=== PATIENT | male | born 1955 | race Two or more races ===

== ENCOUNTER 2024-04-24 20:03 | Inpatient (IN) | payer OTHER ==
[~2024-04-24] VITALS: Ht 167.6 cm; Wt 82.6 kg
[2024-04-24 21:22] LABS: BASOPHILS % (AUTO) 0.1 % (0.0-2.0); EOSINOPHILS % (AUTO) 0.5 % (0.0-6.0); HEMATOCRIT 36 % (39-51); HEMOGLOBIN 12.4 g/dL (13.5-17.5); LYMPHOCYTES # (AUTO) 1.1 K/uL (0.8-4.8); LYMPHOCYTES % (AUTO) 10.3 % (20.0-44.0); MEAN CORPUSCULAR HEMOGLOBIN 31 PG (26.0-33.0); MEAN CORPUSCULAR HGB CONC 35 g/dl (31.0-36.0); MEAN CORPUSCULAR VOLUME 89 fL (80-96); MONOCYTES # (AUTO) 0.5 K/uL (0.1-1.30); MONOCYTES % (AUTO) 4.4 % (2.0-12.0); NEUTROPHILS # (AUTO) 8.7 K/uL (1.8-8.9); NEUTROPHILS % (AUTO) 84.7 % (43.0-81.0); PLATELET COUNT (AUTO) 204 K/uL (150-450); RED BLOOD CELL COUNT(AUTO) 3.99 MIL/uL (4.5-6.0); RED CELL DISTRIBUTION WIDTH 13.9 % (11.5-15.0); WHITE BLOOD COUNT (AUTO) 10.3 K/uL (4.3-11.0)
[2024-04-24 21:38] LABS: CALCIUM, SERUM 8.8 mg/dL (8.5-10.1); CARBON DIOXIDE 25 mmol/L (21-32); CHLORIDE 106 mmol/L (98-107); CREATININE 1.3 mg/dL (0.6-1.3); POTASSIUM 3.5 mmol/L (3.5-5.1); SODIUM SERUM 142 mmol/L (136-145); UREA NITROGEN, BLOOD 30 mg/dL (7-18)
[2024-04-24] MEDS: IV NS 0.9% 1,000 ML BAG IV ONE (22:06)
[2024-04-24 22:21] LABS: GLUCOSE 234 mg/dL (74-106)
[2024-04-24] MEDS ORDERED: CT SWABBABLE VALVE TRANS SET 1 EA INFUS.SET MC ONE (22:52)
[2024-04-24] MEDS ORDERED: IOHEXOL-350 100 ML VIAL IV ONE (22:52)
[2024-04-24] MEDS ORDERED: MAGNESIUM HYDROXIDE 30 ML UDC PO PRN (23:30)
[2024-04-24] MEDS ORDERED: ONDANSETRON HCL/PF 4 MG/2 ML VIAL IVP PRN (23:30)
[2024-04-24] MEDS ORDERED: MAG HYDROX/AL HYDROX/SIMETH 30 ML UDC PO PRN (23:30)
[2024-04-24] MEDS ORDERED: ACETAMINOPHEN 325 MG TABLET PO PRN (23:30)
[2024-04-24] MEDS ORDERED: Z GUARD REMEDY 4 OZ OINT TP PRN (23:30)
[2024-04-24] MEDS ORDERED: DEXTROSE 50%-WATER 50 ML DISP.SYRIN IV PRN (23:30)
[2024-04-25 05:50] LABS: BASOPHILS % (AUTO) 0.3 % (0.0-2.0); EOSINOPHILS # (AUTO) 0.1 K/uL (0.0-0.7); EOSINOPHILS % (AUTO) 1.3 % (0.0-6.0); HEMATOCRIT 36 % (39-51); HEMOGLOBIN 12.1 g/dL (13.5-17.5); LYMPHOCYTES # (AUTO) 2.1 K/uL (0.8-4.8); LYMPHOCYTES % (AUTO) 23.4 % (20.0-44.0); MEAN CORPUSCULAR HEMOGLOBIN 30 PG (26.0-33.0); MEAN CORPUSCULAR HGB CONC 34 g/dl (31.0-36.0); MEAN CORPUSCULAR VOLUME 88 fL (80-96); MONOCYTES # (AUTO) 0.8 K/uL (0.1-1.30); MONOCYTES % (AUTO) 9.2 % (2.0-12.0); NEUTROPHILS # (AUTO) 5.8 K/uL (1.8-8.9); NEUTROPHILS % (AUTO) 65.8 % (43.0-81.0); PLATELET COUNT (AUTO) 205 K/uL (150-450); RED BLOOD CELL COUNT(AUTO) 4.04 MIL/uL (4.5-6.0); WHITE BLOOD COUNT (AUTO) 8.8 K/uL (4.3-11.0)
[2024-04-25 06:14] LABS: ALBUMIN 3.4 g/dL (3.4-5.0); BILIRUBIN,TOTAL 0.3 mg/dL (0.2-1.0); CALCIUM, SERUM 8.3 mg/dL (8.5-10.1); CREATININE 0.8 mg/dL (0.6-1.3); MAGNESIUM 2.4 mg/dL (1.8-2.4); PHOSPHORUS 3.1 mg/dL (2.5-4.9); POTASSIUM 3.7 mmol/L (3.5-5.1); TOTAL PROTEIN, SERUM 6.4 g/dL (6.4-8.2)
[2024-04-25] MEDS: BLOOD SUGAR DIAGNOSTIC 1 EACH STRIP IN SCH (07:42)
[2024-04-25 08:00] VITALS: BP 172/76; TEMP 98.4; O2SAT 97
[2024-04-25] MEDS ORDERED: MOUNJARO SQ (08:40)
[2024-04-25] MEDS ORDERED: INSU100I30 SQ (08:40)
[2024-04-25] MEDS ORDERED: VALS1TAB4 PO (08:40)
[2024-04-25] MEDS: IV NS 0.9% 1,000 ML IV PRN (10:28)
[2024-04-25 11:00] VITALS: BP 176/76; TEMP 98.2; O2SAT 97
[2024-04-25] MEDS: INSULIN REGULAR, HUMAN 100 UNIT/ML 3 ML VIAL SQ PRN (11:08)
[2024-04-25 16:00] VITALS: BP 172/106; TEMP 98.2; O2SAT 94
[2024-04-25 18:08] VITALS: BP_SYST 130; BP_SYST 135; BP_SYST 140; BP_DIAS 60; BP_DIAS 70; TEMP 98.2; O2SAT 94
[2024-04-25 20:00] VITALS: BP_SYST 158; BP_SYST 159; BP_SYST 170; BP_SYST 171; BP_DIAS 74; BP_DIAS 81; BP_DIAS 85; BP_DIAS 88; TEMP 98.3; O2SAT 97
[2024-04-25] MEDS: GUAIFENESIN/CODEINE 10 ML UDC PO PRN (20:52)
[2024-04-25] MEDS ORDERED: MENTHOL/CETYLPYRD (CEPACOL) 1 LOZ LOZENGE PO PRN (21:00)
[2024-04-26] VITALS: BP 163/64; TEMP 97.8; O2SAT 97
[2024-04-26] MEDS: CLONIDINE HCL 0.1 MG TABLET PO PRN (00:31)
[2024-04-26 04:00] VITALS: BP 147/67; TEMP 98.7; O2SAT 95
[2024-04-26 05:02] VITALS: BP 147/67; TEMP 98.7; O2SAT 95
[2024-04-26] MEDS: LOSARTAN POTASSIUM 50 MG TABLET PO SCH (08:21)
[2024-04-26] MEDS: HYDROCHLOROTHIAZIDE 25 MG TABLET PO SCH (08:21)
[2024-04-26 11:50] VITALS: BP 164/74
[2024-04-26] MEDS ORDERED: INSULIN GLARGINE, 100 UNIT/ML CARTRIDGE SQ SCH (22:00)
== END 2024-04-26 12:45 | disposition home or self-care (01) | DRG 74 ==
LOC: ER 20:11 → TELE 04-25 07:55
PROVIDERS: ADMIT Nurse Practitioner Acute Care; ATTEND Surgery Vascular Surgery
DX: G90.89 Other disorders of autonomic nervous system (principal); E86.9 Volume depletion, unspecified; E11.65 Type 2 diabetes mellitus with hyperglycemia; R79.89 Other specified abnormal findings of blood chemistry; D63.8 Anemia in other chronic diseases classified elsewhere; R79.1 Abnormal coagulation profile
CPT/HCPCS: 36415; 71045-TC; 80048-TC; 80053-TC; 80061-TC; 82550-TC; 82962-TC; 83735-TC; 84100-TC; 84484-TC; 85025-TC; 85378-TC; 93307-TC; 97112-TC; 97116-TC; 97530-TC; A4223; G0378; J1815; J7030; Q9967